=== PATIENT | male | born 1975 | race Two or more races ===

== ENCOUNTER 2017-09-28 15:28 | Day surgery (SDC) | END 2017-09-28 17:39 | disposition home or self-care (01) ==

== ENCOUNTER → 2018-03-28 | Outpatient (CLI) | END | disposition home or self-care (01) ==

== ENCOUNTER 2018-10-01 16:57 | Emergency (ER) | payer BC ==
[~2018-10-01] VITALS: Ht 172.7 cm; Wt 104.3 kg
[~2018-10-01 16:57] MED LIST: ESOM40CA PO; LEVO25TA6 PO; METF-849 PO
[2018-10-01 16:59] VITALS: Ht 172.7 cm; Wt 104.3 kg
--- NOTE | 2018-10-01 17:11 | ERD ---
ER Documentation Chief Complaint Chief Complaint abd pain started half hour ago; nausea/vomiting; HPI 43-year-old man complains of left upper and lower abdominal pain beginning earlier today, constant, nonradiating and nonexertional associated with some nausea but he denies vomiting or diarrhea. He states when he attempted to urin ate he had some sharp burning with urination and dark neal colored urine. Patient has had no blood per rectum or melena, no recent antibiotic use, no recent travel. Patient denies chest pain or shortness of breath, no rash, no fevers or chills. ROS All systems reviewed and are negative except as per history of present illness. Medications Home Meds Active Scripts Naproxen* (Naprosyn*) 500 Mg Tablet, 500 MG PO BID PRN for PAIN AND/OR INFLAM MATION, #30 TAB Prov:NIKOLAI MACDONALD MD 10/01/18 Ciprofloxacin Hcl* (Ciprofloxacin Hcl*) 500 Mg Tablet, 500 MG PO BID for 5 Days, TAB Prov:NIKOLAI MACDONALD MD 10/01/18 Reported Medications Levothyroxine Sodium* (Levothyroxine Sodium*) 25 Mcg Tablet, 25 MCG PO BEFORE BREAKFAST, #30 TAB 09/28/17 Metformin* (Glucophage*) 500 Mg Tab, 500 MG PO WITH MEALS, #90 TAB 09/28/17 Esomeprazole Mag Trihydrate (Nexium) 40 Mg Capsule.dr, 40 MG PO DAILY, #30 CAP 09/28/17 Allergies Allergies: Coded Allergies: No Known Allergy (Unverified , 09/28/17) PMhx/Soc Obesity, chronic heartburn, hypothyroidism, diabetes mellitus, hypertension History of Surgery: Yes (L hip, thyroidectomy) Anesthesia Reaction: No Hx Neurological Disorder: No Hx Respiratory Disorders: No Hx Cardiac Disorders: No Hx Psychiatric Problems: No Hx Miscellaneous Medical Probl: No Hx Alcohol Use: Yes (occasional) Hx Substance Use: No Hx Tobacco Use: Yes FmHx Family History: No diabetes Physical Exam Vitals Vital Signs Date Temp Pulse Resp B/P (MAP) Pulse Ox O2 O2 Flow FiO2 Time Delivery Rate 10/01/18 97.3 83 20 156/105 98 16:59 (122) Physical Exam Const: No acute distress Head: Atraumatic Eyes: Normal Conjunctiva ENT: Normal External Ears, Nose and Mouth. Neck: Full range of motion. No meningismus. Resp: Clear to auscultation bilaterally Cardio: Regular rate and rhythm, no murmurs Abd: Soft, non tender, non distended. Normal bowel sounds Skin: No petechiae or rashes Back: No midline or flank tenderness Ext: No cyanosis, or edema Neur: Awake and alert Psych: Normal Mood and Affect Result Diagram: 10/01/18 1725 10/01/18 1725 Results 24 hrs Laboratory Tests Test 10/01/18 17:25 White Blood Count 7.6 10^3/ul Red Blood Count 4.96 10^6/ul Hemoglobin 15.5 g/dl Hematocrit 45.4 % Mean Corpuscular Volume 91.5 fl Mean Corpuscular Hemoglobin 31.3 pg Mean Corpuscular Hemoglobin Concent 34.1 g/dl Red Cell Distribution Width 12.1 % Platelet Count 198 10^3/UL Mean Platelet Volume 10.3 fl Immature Granulocytes % 0.300 % Neutrophils % 60.9 % Lymphocytes % 25.8 % Monocytes % 8.5 % Eosinophils % 4.1 % Basophils % 0.4 % Nucleated Red Blood Cells % 0.0 /100WBC Immature Granulocytes # 0.020 10^3/ul Neutrophils # 4.6 10^3/ul Lymphocytes # 2.0 10^3/ul Monocytes # 0.6 10^3/ul Eosinophils # 0.3 10^3/ul Basophils # 0.0 10^3/ul Nucleated Red Blood Cells # 0.0 10^3/ul Urine Color YELLOW Urine Clarity SLIGHTLY CLOUDY Urine pH 5.0 Urine Specific [place] 1.023 Urine Ketones NEGATIVE mg/dL Urine Nitrite NEGATIVE mg/dL Urine Bilirubin NEGATIVE mg/dL Urine Urobilinogen NEGATIVE mg/dL Urine Leukocyte Esterase NEGATIVE [place]/ul Urine Microscopic RBC > 182 /HPF Urine Microscopic WBC 5 /HPF Urine Bacteria FEW /HPF Urine Mucus MODERATE /HPF Urine Hemoglobin 3+ mg/dL Urine Glucose NEGATIVE mg/dL Urine Total Protein 2+ mg/dl Sodium Level 143 mmol/L Potassium Level 4.2 mmol/L Chloride Level 103 mmol/L Carbon Dioxide Level 25 mmol/L Anion Gap 15 Blood Urea Nitrogen 16 mg/dl Creatinine 1.00 mg/dl Est Glomerular Filtrat Rate mL/min > 60 mL/min Glucose Level 172 mg/dl Calcium Level 9.7 mg/dl Total Bilirubin 0.3 mg/dl Direct Bilirubin 0.00 mg/dl Indirect Bilirubin 0.3 mg/dl Aspartate Amino Transf (AST/SGOT) 25 IU/L Alanine Aminotransferase (ALT/SGPT) 27 IU/L Alkaline Phosphatase 71 IU/L Troponin I < 0.012 ng/ml Total Protein 7.6 g/dl Albumin 4.6 g/dl Globulin 3.00 g/dl Albumin/Globulin Ratio 1.53 Lipase 85 U/L Current Medications Medications Dose Sig/Junior Start Time Status Last (Trade) Ordered Route PRN Stop Time Admin Dose Reason Admin Sodium 1,000 ml @ Q1H STAT 10/01/18 DC 10/01/18 Chloride 1,000 mls/hr IV 17:14 17:34 10/01/18 18:13 Ondansetron 4 mg ONCE STAT 10/01/18 DC 10/01/18 HCl (Zofran IV 17:14 18:37 Inj) 10/01/18 17:15 Ketorolac 15 mg ONCE STAT 10/01/18 DC 10/01/18 Tromethamine IV 17:14 18:42 (Toradol) 10/01/18 17:15 500 mg ONCE ONCE 10/01/18 DC 10/01/18 Ciprofloxacin PO 18:00 18:37 (Cipro) 10/01/18 18:01 Procedures/MDM IV line was established patient was placed on stem roller operator rhythm strip revealed a sinus rhythm at about 80 bpm with upright P and T waves. Patient was afebrile EKG performed, read by me revealed a normal sinus rhythm 83 bpm, normal axis, narrow QRS complex, no concerning ST elevations or depressions noted I administered 1 L normal saline IV x1. Patient initially refused further meds including analgesics, but then agreed to Toradol 15 mg IV out of concern that the pain may return. CT scan of the abdomen and pelvis was performed,IMPRESSION: Borderline thickened appearance of sigmoid colon and rectum which could represent sequelae of underdistension versus a mild distal colitis without obstruction or appendicitis. Hepatosplenomegaly is seen with fatty infiltration of the liver. Trace fat containing left inguinal hernia. No renal or ureteral calculi with no evidence of hydronephrosis. Left total hip arthroplasty. CBC is normal, electrolytes are unremarkable, liver function tests normal, troponin negative, urinalysis reveals gross hematuria possible early hemorrhagic cystitis. I administered ciprofloxacin 500 mg p.o. x1. Today is New Year's Tawn[place] and the patient has plans on going home tonight and drinking alcohol of excessively with friends, which I cautioned against. I did inform him that he has possible early hemorrhagic cystitis, he may have passed a kidney or ureter stone, and/or he may early diffuse infectious colitis. Heavy alcohol ingestion will complicate and make worse all of these possible etiologies and result in worsening symptoms, difficulty with proper treatment, and possible severe complications such as sepsis, perforation, pyelonephritis or other possibilities. I also told him to return in 8-12 hours for repeat abdominal examination or earlier if he develops a fever, worsening pain, diarrhea, blood per rectum, or vomiting. Differential diagnoses considered, included but not limited to acute coronary syndrome, pulmonary embolism, aortic dissection, abdominal aortic aneurysm, sepsis, stroke, meningitis, encephalitis, pneumonia, appendicitis, cholecystitis, bowel obstruction, pyelonephritis, nephrolithiasis, cystitis, as well as metabolic, hematologic, and electrolyte abnormalities. As well as abscess, cellulitis, fractures, and dislocations. Patient feels much better at this time, and vital signs are normal, symptoms have improved. I did give strict instructions to return to the ED if symptoms continue or worsen, patient will otherwise follow-up with primary care physician. Patient understood instructions and agreed to plan. Disclaimer: Inadvertent spelling and grammatical errors are likely due to EHR/dictation software use and do not reflect on the overall quality of patient care. Also, please note that the electronic time recorded on this note does not necessarily reflect the actual time of the patient encounter. Departure Diagnosis: Primary Impression: Hematuria Hematuria type: gross Qualified Codes: R31.0 - Gross hematuria Additional Impression: Abdominal pain Abdominal location: left upper quadrant Qualified Codes: R10.12 - Left upper quadrant pain Condition: Good NIKOLAI MACDONALD MD Oct 01, 2018 17:11
[2018-10-01] MEDS ORDERED: SOD CHLORIDE 0.9% 1,000 ML IV STA (17:14)
[2018-10-01] MEDS ORDERED: KETOROLAC 15 MG INJ IV STA (17:14)
[2018-10-01] MEDS ORDERED: ONDANSETRON 4 MG INJ IV STA (17:14)
[2018-10-01] MEDS ORDERED: CIPROFLOXACIN 500 MG TAB PO ONE (18:00)
[2018-10-01] MEDS ORDERED: CIPR500T4 PO (18:31)
[2018-10-01] MEDS ORDERED: NAPR-985 PO (18:33)
[2018-10-01 19:19] VITALS: BP 133/85; PULSE 92; RESP 16
== END 2018-10-01 19:21 | disposition home or self-care (01) ==
LOC: E/R 16:57
DX: R31.0 Gross hematuria (principal); E66.9 Obesity, unspecified; E03.9 Hypothyroidism, unspecified; I10 Essential (primary) hypertension; E11.9 Type 2 diabetes mellitus without complications; Z68.35 Body mass index [BMI] 35.0-35.9, adult; Z79.84 Long term (current) use of oral hypoglycemic drugs; Z87.891 Personal history of nicotine dependence
CPT/HCPCS: 36415; 74176; 80053; 81001; 83690; 84484; 85025; 87086; 93005; 96361; 96374; 96375; J1885; J2405; J7030; Z7502; Z7610

== ENCOUNTER → 2018-12-13 | Outpatient (CLI) | payer BC ==
[~2018-12-13] MED LIST changes: +CIPR500T4 PO; +NAPR-985 PO
== END | disposition home or self-care (01) ==
LOC: NUC 10:00
PROVIDERS: ATTEND Internal Medicine Endocrinology, Diabetes & Metabolism
DX: C73 Malignant neoplasm of thyroid gland (principal)
CPT/HCPCS: 78018; A9517